=== PATIENT | female | born 2000 | race Two or more races ===

== ENCOUNTER 2024-07-05 20:02 | Emergency (ER) | payer MEDICAID, SELFPAY ==
[2024-07-05 20:04] VITALS: BMI 30.1
[2024-07-05 20:40] VITALS: BP 122/80; PULSE 86; RESP 16; TEMP 36.9; O2SAT 97
--- NOTE | 2024-07-05 20:43 | PD.EDUPEX ---
Upper Extremity Injury RME/HPI General Chief Complaint: Extremity Injury, Upper Stated Complaint: needle stick to 4th digit left hand Time Seen by Provider: 07/05/24 20:24 Arrival date/time: 07/05/24 20:02 RME / HPI RME / HPI narrative: 23-year-old female patient came in for evaluation regarding middle stick injury. Patient working at [employer], while fixing box, accidentally poked herself with needle, patient does not know if the needle is used or not. Patient sustained a possible puncture wound to the left ring finger. Patient cleaned the area right away with alcohol and however she did not notice any blood or pain with alcohol. Patient's vaccination is up-to-date. Related Data Home Medications ?Medication ?Instructions ?Recorded ?Confirmed albuterol sulfate 90 mcg/actuation 2 puff inhalation BID PRN 07/04/17 10/17/21 aerosol inhaler (Ventolin HFA) Shortness Of Breath Or Wheezing ##18 fluticasone furoate 100 1 inh inhalation QDAY 04/04/18 10/17/21 mcg/actuation blister powder for inhalation (Arnuity Ellipta) gabapentin 100 mg capsule 100 mg PO HS 04/04/18 10/17/21 ibuprofen 200 mg tablet (Motrin IB) 600 mg PO TID PRN Headache 04/04/18 10/17/21 levetiracetam 500 mg tablet 500 mg PO HS 04/04/18 10/17/21 sumatriptan succinate 100 mg 1 tab PO DAILY PRN Headache 04/04/18 10/17/21 tablet (Imitrex) Previous Rx's ?Medication ?Instructions ?Recorded omeprazole 20 mg capsule,delayed 20 mg PO QDAY #30 caps 10/17/21 release famotidine 20 mg tablet (Pepcid) 20 mg PO BID #10 tabs 04/05/22 prednisone 50 mg tablet 50 mg PO QDAY #5 tabs 04/05/22 ibuprofen 600 mg tablet 600 mg PO Q8H PRN fever or pain 05/26/22 #30 tabs Allergies Allergy/AdvReac Type Severity Reaction Status Date / Time clavulanic acid Allergy Severe HIVES Verified 12/04/23 21:27 codeine Allergy Severe FACIAL Verified 12/04/23 21:27 SWELLING amoxicillin [From Augmentin] Allergy Verified 07/05/24 20:04 Review of Systems Review of Systems Narrative Review of Systems: Review of system reviewed and within normal limits except mentioned in HPI ED Exam Narrative Physical exam: VITAL SIGNS: Reviewed. GENERAL APPEARANCE: Alert and interactive, follows commands, no acute distress, HEAD AND FACE: Non-traumatic. ENT: PERRL, pink conjunctivitis, eyelid no trauma, Mucous membrane moist. NECK: Supple, nontender, no nuchal rigidity. CHEST: No tenderness, no crepitus, no paradoxical movement, no retractions. LUNGS: Clear, well ventilated, symmetric, no rales, no wheezing, no ronchi, no stridor, good breath sounds bilaterally. HEART: Regular rate, regular rhythm, no murmur, no gallops. ABDOMEN: Soft, positive bowel sounds, nondistended, no guarding, nontender, no rebound, no masses, RECTAL: Deferred. GENITAL: Deferred. NEUROLOGICAL: Gross motor function intact sensory function intact, Appropriate for age. MUSCULOSKELETAL: low back nontender, full range of motion. EXTREMITIES: Puncture wound left ring finger. Nontender, full range of motion. SKIN: Color pink, dry, no rash, no lacerations, no abrasions, no contusions. LYMPHATICS: Deferred. Course Quality Measures none Orders Category Date Time Status CBC [CBC] Stat Lab 07/05/24 20:56 Completed CMP [Comprehensive Metabolic Panel] Stat Lab 07/05/24 20:56 Completed HIV (1&2) Antibody Rapid Stat Lab 07/05/24 20:56 Completed Hepatitis B Surface Ab Stat Lab 07/05/24 20:56 Received Hepatitis C Antibody Stat Lab 07/05/24 20:56 Received Vital Signs Vital signs: Vital Signs Temperature 98.4 F 07/05/24 20:40 Pulse Rate 86 07/05/24 20:40 Respiratory Rate 16 07/05/24 20:40 Blood Pressure 122/80 07/05/24 20:40 Pulse Oximetry (%) 97 07/05/24 20:40 Oxygen Delivery Method Room Air 07/05/24 20:40 Extremity Injury MDM Narrative MDM Narrative:: 23-year-old female patient came in for evaluation regarding middle stick injury. Patient working at [employer], while fixing box, accidentally poked herself with needle, patient does not know if the needle is used or not. Patient sustained a possible puncture wound to the left ring finger. Patient cleaned the area right away with alcohol and however she did not notice any blood or pain with alcohol. Patient's vaccination is up-to-date. Patient's workup today all came back unremarkable. Patient was advised to closely follow-up. Ricardo'viniico Sánchez MD in the morning for further monitoring and management. Patient data External records reviewed:: None Clinical information provided by:: patient and family Social determinants that could affect healthcare access:: none Patient has the following chronic illnesses:: None How is presenting disease/condition affected by chronic disease/condition?: no chronic disease Evaluation data The following diagnostics were reviewed and interpreted by me:: lab results Lab and/or radiology exams considered but not ordered:: None Interpretation Summary: Workup today all came back unremarkable Medications / Prescriptions Medications or Prescriptions considered but not ordered:: None Medication administrations:: None Consultations Consultation(s) initiated? (list below): No Diagnosis Upper Extremity Injury Differential Diagnosis: other (Needlestick injury,) Most likely diagnosis given after review of the tests above:: Needlestick injury Admission Indicated Admission indicated?: not indicated Explain why admission is indicated or not indicated:: Stable Admission Request Was there a request for admission?: No Disposition Plan Disposition Plan: Discharge Discharge Attestation Discharge Attestation: The patient and all family members were given an opportunity to ask questions and understood the discharge instructions. Discharge instructions specifically effects, indications for sooner follow up or return to the emergency department, and the expected course of current diagnosis. Patient condition: Stable Discharge Plan Plan Patient Disposition: HOME (Self Care) Disposition Comment: Stable Prescriptions/Referrals Prescriptions/Med Rec: No Action albuterol sulfate [Ventolin HFA] 200 PUFF/INH HFA aerosol inhaler 2 puff Inhalation BID PRN (Reason: Shortness Of Breath Or Wheezing) Qty: 18 omeprazole 20 mg capsule,delayed release(DR/EC) 20 mg PO QDAY Qty: 30 1RF levetiracetam 500 mg Tablet 500 mg PO HS Rx Instructions: TAKE 1 CAP FOR 2 WEEKS THEN TAKE 2 CAPS QHS gabapentin 100 MG capsule 100 mg PO HS sumatriptan succinate [Imitrex] 100 mg Tablet 1 tab PO DAILY PRN (Reason: Headache) ibuprofen [Motrin IB] 200 mg Tablet 600 mg PO TID PRN (Reason: Headache) Arnuity Ellipta 100 mcg/actuation Blister With Device 1 inh INHALATION QDAY prednisone 50 mg tablet 50 mg PO QDAY Qty: 5 0RF Rx Instructions: Begin taking the medication tomorrow. famotidine [Pepcid] 20 mg tablet 20 mg PO BID Qty: 10 0RF ibuprofen 600 mg tablet 600 mg PO Q8H PRN (Reason: fever or pain) Qty: 30 0RF Referrals: Shira Stewart PA-C [Primary Care Provider] - In 1 week Problem List Clinical Impression: Needlestick injury accident Patient/Caregiver Discharge Instructions Discharge Activity: activity as tolerated Education Materials: ED Body Fluid Exposure Not ... Additional Instructions: Thank you for the opportunity for serving you today. You are stable for discharged . You are advised to: Follow-up with your Worker's Comp. doctor in the morning Return to ED for worsening of symptoms Print Language: Kyrgyz Stand Alone Forms: Tatyana Award Info., Patient Portal Info Letter PA/ANI Supervising Physician CAESAR/ANI Supervising Physician: MD Danika
[2024-07-05 21:30] LABS: Basophils % (Auto) 0 % (0-2.5); Eosinophils # (Auto) 0.2 Thou/mm3 (0.0-0.5); Eosinophils % (Auto) 2 % (0-10); Hematocrit 41.1 % (36.0-46.0); Immature Granulocytes % (Auto) 0 % (0-0); Immature Granulocytes Auto 0.03 Thou/mm3 (0.00-0.00); Lymphocytes # (Auto) 3.9 Thou/mm3 (1.0-4.8); Lymphocytes % (Auto) 32 % (10-50); Mean Corpuscular HGB Conc 34.1 g/dl (31.0-37.0); Mean Corpuscular Hemoglobin 27.2 pg (25.0-35.0); Mean Corpuscular Volume 80 fL (80-100); Monocytes # (Auto) 0.7 Thou/mm3 (0.0-0.8); Monocytes % (Auto) 6 % (0-12); Neutrophils # (Auto) 7.6 Thou/mm3 (1.8-7.7); Neutrophils % (Auto) 61 % (37-80); Nucleated Red Blood Cell % 0 /100 WBC (0); Platelet Count 349 Thou/mm3 (140-440); RDW Standard Deviation 38.8 fL (36.4-46.3); Red Blood Count 5.14 Miln/mm3 (4.00-5.20); White Blood Count 12.5 Thou/mm3 (3.6-11.0)
[2024-07-05 21:43] LABS: Alanine Aminotransferase 17 U/L (10-49); Alkaline Phosphatase 115 U/L (46-116); Anion Gap 9 (7-16); Aspartate Amino Transferase 21 U/L (0-34); BUN/Creatinine Ratio 12 Ratio (12-20); Bilirubin,Total 0.7 mg/dL (0.3-1.2); Blood Urea Nitrogen 6 mg/dL (9-23); Calcium 10.1 mg/dL (8.3-10.6); Calcium (Corrected) 10.1 mg/dL (8.5-10.1); Carbon Dioxide 26.7 mMol/L (20.0-31.0); Chloride 103 mMol/L (98-107); Creatinine (Component) 0.5 mg/dL (0.6-1.3); Globulin 2.5 gm/dL (2.3-3.5); Glucose 97 mg/dL (74-106); Osmolality,Calculated 275 (275-295); Potassium 4.1 mMol/L (3.4-5.1); Sodium 139 mMol/L (136-145); Total Protein 7.5 gm/dL (5.7-8.2); eGFR > 60 See Note
[2024-07-05 23:20] VITALS: BP 118/76; PULSE 80; RESP 18; TEMP 36.7; O2SAT 96
[2024-07-06 01:41] LABS: HIV (1&2) Antibody Rapid Non-Reactive
[2024-07-08 03:45] LABS: Hepatitis B Surface Ab NonReact(Not Immune) (Immune); Hepatitis C Antibody Non Reactive (Non React)
== END 2024-07-05 23:20 | disposition home or self-care (01) ==
PROVIDERS: Nurse Practitioner Family; Emergency Provider Emergency Medicine; PCP Physician Assistant
DX: S61.235A Puncture wound without foreign body of left ring finger without damage to nail, initial encounter (principal); W46.0XXA Contact with hypodermic needle, initial encounter; Y99.0 Civilian activity done for income or pay; Z77.21 Contact with and (suspected) exposure to potentially hazardous body fluids
CPT/HCPCS: 36415; 80053; 85025; 86703; 86706; 86803; 99283